=== PATIENT | male | born 1955 | race African-American/Black ===

== ENCOUNTER 2018-09-18 16:01 | Inpatient (IN) | payer OTHER ==
[~2018-09-18] VITALS: Ht 190.5 cm; Wt 77.7 kg
[2018-09-18 16:03] VITALS: BP 122/79
[2018-09-18] MEDS ORDERED: DEPAKOTE500 MG PO (17:38)
[2018-09-18] MEDS ORDERED: MELATONIN1 MG PO (17:40)
[2018-09-18] MEDS ORDERED: ZYPREXA5 MG PO (17:41)
[2018-09-18] MEDS ORDERED: PROPRANOLOL 1010 MG PO (17:41)
[2018-09-18 18:00] VITALS: BP 132/89
--- NOTE | 2018-09-18 18:00 | NUR ---
TO OR BY GI LAB
--- NOTE | 2018-09-18 19:06 | NUR ---
RETURNED TO ROOM 1 FROM GI LAB.
[2018-09-18 19:31] LABS: ABSOLUTE NEUTROPHILS 6.8 thou/uL (1.4-8.2); BASOPHILS 0.5 % (0.0-2.0); EOSINOPHILS 0.4 % (0.0-3.0); HEMATOCRIT 41.1 % (42.0-52.0); HEMOGLOBIN 13.8 gm/dL (14.0-18.0); LYMPHOCYTES 21.4 % (24.0-44.0); MCH 31.4 pg (26.0-34.0); MCHC 33.5 g/dL (28.0-37.0); MCV 93.7 fL (80.0-100.0); MONOCYTES 8.7 % (1.0-8.0); PLATELET COUNT 312 thou/uL (150-400); RBC 4.39 mil/uL (4.50-6.00); RDW 14.5 % (10.5-14.5); WBC 9.8 thou/uL (4.0-11.0)
[2018-09-18 19:33] LABS: ANION GAP 9 mmol/L (7-16); BUN 24 mg/dL (7-18); CALCIUM 9.3 mg/dL (8.5-10.1); CHLORIDE 107 mmol/L (98-107); CO2 25 mmol/L (21-32); CREATININE 1.2 mg/dL (0.7-1.3); GLUCOSE 122 mg/dL (74-106); POTASSIUM 4.3 mmol/L (3.5-5.1); SODIUM 141 mmol/L (136-145)
[2018-09-18 19:35] LABS: INR 1.1; PROTIME 11.1 Seconds (9.3-11.4)
[2018-09-18 19:41] LABS: BE(vivo) -2.1 mmol/L (-2 to +3); HCO3 22.8 mmol/L (22.0-26.0); PCO2 39.7 mmHg (35.0-45.0); PO2 67.6 mmHg (80.0-100.0); pH 7.377 (7.360-7.450); sO2 93.2 % (92.0-98.0)
[2018-09-18 19:43] LABS: ALBUMIN 3.1 g/dL (3.4-5.0); MAGNESIUM 1.9 mg/dL (1.8-2.4); SGOT 22 U/L (15-37); SGPT 15 U/L (30-65); TOTAL BILIRUBIN 0.3 mg/dL (<0.1-1.0); TOTAL PROTEIN 7.8 g/dL (6.4-8.2); TROPONIN-I <0.06 ng/mL (<0.06)
[2018-09-18 22:37] VITALS: BP 117/72
--- NOTE | 2018-09-18 22:37 | NUR ---
HAND OFF REPORT SENT TO
[2018-09-18 22:48] VITALS: BP 98/67
[2018-09-18 23:32] VITALS: BP 129/81
[2018-09-19 04:02] VITALS: BP 100/51
--- NOTE | 2018-09-19 06:01 | NUR ---
patient aox2 not able to express himself d/t hx. tbi. patient is continent this shift. patient was able to take meds with applesause this shift. patient had temp of 100.3, temp is 98.0 at this time. patient calm and cooperative with meds and care. patient able to follow comands. patient needs x1 assistance with adl, transfer, toileting and bed mobility. fall precaution in place. scd on.patient in bed asleep at this time breathing regular and unlaboured.
[2018-09-19 07:24] VITALS: BP 95/57
[2018-09-19 11:07] VITALS: BP 106/73
[2018-09-19 15:25] VITALS: BP 121/72
[2018-09-19 19:27] VITALS: BP 129/85
[2018-09-20 03:54] LABS: CALCIUM 8.6 mg/dL (8.5-10.1); CREATININE 1.1 mg/dL (0.7-1.3); MAGNESIUM 1.6 mg/dL (1.8-2.4); POTASSIUM 3.8 mmol/L (3.5-5.1)
[2018-09-20 04:07] LABS: HEMATOCRIT 33.1 % (42.0-52.0); MCH 31.7 pg (26.0-34.0); MCHC 33.9 g/dL (28.0-37.0); MCV 93.6 fL (80.0-100.0); RBC 3.53 mil/uL (4.50-6.00); RDW 14.3 % (10.5-14.5); WBC 22.3 thou/uL (4.0-11.0)
[2018-09-20 04:24] LABS: HEMOGLOBIN 11.2 gm/dL (14.0-18.0)
[2018-09-20 05:28] VITALS: BP 134/88
[2018-09-20 07:57] LABS: BE(vivo) -1.1 mmol/L (-2 to +3); HCO3 23.1 mmol/L (22.0-26.0); PCO2 36.7 mmHg (35.0-45.0); pH 7.416 (7.360-7.450); sO2 94.8 % (92.0-98.0)
--- NOTE | 2018-09-20 08:03 | NUR ---
ASSUMED PT CARE AT 1900 WITH NO SIGN OF DISTRESS NOTED. FAMILY AT BEDSIDE. PT IS ALERT BUT CONFUSED. ASSESSMENT CHARTED AND COMPLETED. SCHEDULED MEDS ADMINISTERED TO PT AND PT TOLERATED PO INTAKE. DENIES ANY NEEDS NO SIGN OF DISTRESS NOTED IN PT. PT IS STABLE THROUGHOUT THE NIGHT ON OXYGEN. DENIES ANY NEEDS AT THIS TIME. CONTINUE TO MONITOR PATIENT.
[2018-09-20 08:18] VITALS: BP 123/83
--- NOTE | 2018-09-20 08:40 | EKG ---
[address] [address] ELECTROCARDIOGRAM REPORT Name: ANICETO ALFARO Room #: 212-P ADM IN M.R.#: [id number] ������������������ Admission: 09/18/18 ������������������ Attend Phys: Gary Mar MD Discharge: ������������������ Date of : 53 Report #: [id number] ����������������������������������������������������������������� [id number] THIS REPORT FOR: //name// [facility] ED Test Date: 2018-09-18 Test Time: 19:27:05 Pat Name: ANICETO ALFARO Department: Room: [facility] Gender: M Vp [employer]: [place] : 1955 Requested By: Hang Valadez Order Number: [id number] MD: Rajesh Reynolds Measurements Intervals [place] Rate: 109 P: 74 [place]: 173 QRS: -67 QRSD: 81 T: 74 QT: 323 QTc: 436 Interpretive Statements Sinus tachycardia Left anterior fascicular block Low voltage, extremity leads Anteroseptal infarct, old No previous ECG available for comparison Electronically Signed On 09-20-2018 8:40:30 CDT by Rajesh Reynolds [email or web address] ��������������������������������������������� <ELECTRONICALLY SIGNED> ���������������������������������������� By: Rajesh Reynolds MD ��������������������������������������������� 09/20/18 0840 26 26 Rajesh Reynolds MD /GIOVANNA
[2018-09-20 12:23] VITALS: BP 106/72
[2018-09-20 14:09] VITALS: BP 147/98
--- NOTE | 2018-09-20 14:53 | NUR ---
met with patient who admits from [facility] with difficulty swallowing. Left message at [facility] as there is no emergecy contact on face sheet from facility. Plan return to [facility] once stable. [place] airport planner to update facility.
--- NOTE | 2018-09-20 15:10 | NUR ---
PATIENT CARE ASSUMED AT 0700, ASSESSMENT CHARTED, VSS, NO COMPLAINTS OF PAIN, DC'S NS AT 125, 3L 02 BY MT, PATIENT TRANSFERRED TO Replaced by [facility].
--- NOTE | 2018-09-20 15:58 | NUR ---
FAXED CLINICAL UPDATE TO [facility] LEFT MSG WITH KELLIE IN ADM THAT UPDATE FAXED. DCP TO FOLLOW.
--- NOTE | 2018-09-20 16:08 | HC ---
[facility] [place] [address] [place] [address] CONSULTATION Name: ANICETO ALFARO Room #: 423-1 ADM IN M.R.#: [id number] Admission: 09/18/18 ������������������ Attend Phys: Gary Mar MD Discharge: ������������������ Date of : 53 Report #: [id number] THIS REPORT FOR: //name// CC: Brea Madrid DO DATE OF SERVICE: 09/18/2018 HISTORY OF PRESENT ILLNESS: The patient is a 63-year-old male with likely food impaction, was eating a hot dog earlier today. Since then, he has not been able to swallow his own saliva. He has a history of traumatic brain injury and he can communicate, but is somewhat difficult to understand. Apparently, this has happened in the past. No old records are available in the computer. He has been having a cough. He does report some discomfort in his upper chest at this time. He has been unable to swallow his saliva or secretions in the Emergency Room. The patient had an x-ray of the neck and soft tissues, mild interstitial infiltrates may be present in the perihilar lungs. No chest radiograph is available. He was satting in the upper 80s on room air in the Emergency Room, in the 90s with oxygen, but was not wanting to wear his nasal canula oxygen. No family members are present at this time. PAST MEDICAL HISTORY: Traumatic brain injury. MEDICATIONS ON ADMISSION: From his rehab facility, Depakote, melatonin, Zyprexa, propranolol. ALLERGIES: No known drug allergies. REVIEW OF SYSTEMS: Very limited, but as per HPI. SOCIAL HISTORY: Unknown history of tobacco or alcohol use. FAMILY HISTORY: Unknown. PHYSICAL EXAMINATION: VITAL SIGNS: Temperature is 97.9, pulse 101, respiratory rate 26, O2 sat 86% on room air, blood pressure 122/79. GENERAL: He is in no acute distress, but he is spitting up and coughing up saliva. HEENT: Sclerae are nonicteric. Oropharynx is clear. NECK: Supple. CARDIOVASCULAR: Regular rhythm, but tachycardic. CHEST: No wheezes bilaterally. ABDOMEN: Soft. He is nontender, nondistended, normoactive bowel sounds. EXTREMITIES: No cyanosis, clubbing or edema. [address] [address] CONSULTATION Name: ANICETO ALFARO Room #: [facility] ADM IN M.R.#: [id number] Admission: 09/18/18 ������������������ Attend Phys: Gary Mar MD Discharge: ������������������ Date of : 53 Report #: [id number] LABORATORY DATA: No labs at this time. ASSESSMENT AND PLAN: Food impaction. I would recommend proceeding with an upper endoscopy today. Plan is for anesthesia with likely intubation to protect his airway. I will make further recommendations after endoscopy. Thank you for allowing me to participate in his care. ��������������������������������������������� <ELECTRONICALLY SIGNED> ���������������������������������������� By: Perfecto Contreras MD ��������������������������������������������� 09/20/18 1608 1838 [id number] Perfecto Contreras MD /yun
--- NOTE | 2018-09-20 16:08 | P ---
[facility] [address] [place] [address] PROCEDURE REPORT Name: ANICETO ALFARO Room #: 423-1 ADM IN M.R.#: [id number] Admission: 09/18/18 ������������������ Attend Phys: Gary Mar MD Discharge: ������������������ Date of : 53 Report #: [id number] THIS REPORT FOR: //name// CC: Brea Madrid DO DATE OF SERVICE: 09/18/2018 PROCEDURE PERFORMED: Upper endoscopy with food impaction removal. HISTORY OF PRESENT ILLNESS: The patient is a 63-year-old male with likely food impaction, was eating a hot dog earlier today. History is limited as he does have a history of traumatic brain injury, but apparently he was eating a hot dog and since that time he has not been able to swallow his own secretions and has been having coughing. His O2 sats on room air are in the upper 80s, with oxygen he is in the low 90s. Plan is for EGD. DESCRIPTION OF PROCEDURE: The risks and benefits of the procedure were explained to the patient, those risks including but not limited to bleeding, perforation and the risk of sedation. He understood these risks and gave informed consent. The patient was given propofol and intubated per Anesthesia. Next, using a standard Olympus upper endoscope, the scope was placed in the patient's mouth and advanced into the oropharynx area. Secretions were suctioned away. In the very proximal esophagus near the upper esophageal sphincter a large food impaction was noted. Initially I tried to remove this with a Cheng Net, but it was not successful, I was able to remove some pieces of the food. At this point, I was able to gently push the food impaction down into the stomach without difficulty. There was old food within the stomach. The visualized portion of the gastric mucosa was normal. The pylorus was normal and patent. The duodenal bulb, first and second portion were normal. The scope was then brought back up into the patient's esophagus. GE junction was normal. Mid esophagus was normal. The very proximal esophagus, there was a mild narrowing there, no obvious ring. I did not attempt to dilate at this time because he did have some inflammation from the recent food impaction, but again no obvious significant stricture in this area. At this point, the scope was then withdrawn and the procedure terminated. The patient tolerated the procedure well. IMPRESSION: 1. Food impaction proximal esophagus as described above, status post removal today. 2. Mild narrowing of the upper esophagus with inflammation likely due to recent impaction. 3. Otherwise normal upper endoscopy. RECOMMENDATIONS: Observe the patient post-procedure. If his O2 sats are stable [address] [address] PROCEDURE REPORT Name: DOMINICANICETO John Room #: 423-1 [facility] IN M.R.#: [id number] Admission: 09/18/18 ������������������ Attend Phys: Gary Mar MD Discharge: ������������������ Date of : 53 Report #: [id number] on room air, can consider discharge to home today and would advise the patient chewing his food thoroughly, may consider repeat upper endoscopy with dilation in the near future. Thank you for allowing me to participate in his care. ��������������������������������������������� <ELECTRONICALLY SIGNED> ���������������������������������������� By: Perfecto Contreras MD ��������������������������������������������� 09/20/18 1608 1841 [id number] Perfecto Contreras MD /nt
[2018-09-20 19:30] VITALS: BP 153/120
[2018-09-20 20:50] VITALS: BP 150/86
--- NOTE | 2018-09-21 03:17 | NUR ---
PATIENT ALERT AND ORIENTED X4. RESP COARSE AND DIMINISHED. HAS BREATHING TX'S. O2 AT 3L/NC. UP WITH ASSIST. DENIES PAIN. SLEPT MOST OF NIGHT.
[2018-09-21 03:44] VITALS: BP 147/91
[2018-09-21 05:30] LABS: HEMATOCRIT 34.9 % (42.0-52.0); HEMOGLOBIN 11.7 gm/dL (14.0-18.0); MCH 31.3 pg (26.0-34.0); MCHC 33.6 g/dL (28.0-37.0); RBC 3.75 mil/uL (4.50-6.00); RDW 14.6 % (10.5-14.5); WBC 17.2 thou/uL (4.0-11.0)
[2018-09-21 05:49] LABS: CALCIUM 9.2 mg/dL (8.5-10.1); CREATININE 1.1 mg/dL (0.7-1.3); POTASSIUM 3.8 mmol/L (3.5-5.1)
[2018-09-21 08:00] VITALS: BP 130/50
[2018-09-21 09:13] VITALS: BP 138/91
[2018-09-21 14:11] VITALS: BP 119/63
--- NOTE | 2018-09-21 14:51 | NUR ---
ASSUMED CARE AT 0700, SHIFT ASSESSMENT DONE, MEDS GIVEN, VSS. WENT FOR A VIDEO SWALLOW EVALUATION, NO CHANGES IN DIET CONSISTENCY AND NO SWALLOWING ISSUES. RECEIVING IV ANTIBITICS. DENIES ANY NAUSEA, VOMITING, PAIN. WILL CONTINUE TO ASSESS AND ASSIST WITH ADLs NEEDED.
[2018-09-21 17:30] LABS: URINE BILIRUBIN NEGATIVE (Negative); URINE BLOOD NEGATIVE (Negative); URINE CLARITY CLEAR; URINE COLOR YELLOW; URINE GLUCOSE-RANDOM* NEGATIVE (Negative); URINE KETONES NEGATIVE (Negative); URINE LEUKOCYTES-REFLEX NEGATIVE (Negative); URINE NITRITE-REFLEX NEGATIVE (Negative); URINE PROTEIN (DIPSTICK) NEGATIVE (Negative)
--- NOTE | 2018-09-22 01:30 | NUR ---
TURNED AND REPOSITIONED, BED ALARM ON, SCDS TO BLE, ON 3 L PER NC, SPEECH SOFT BUT UNDERSTANDABLE, DRY COUGH, CONTINUE WITH IV ANTIBIOTICS FOR ASPIRATION PNEUMONIA, VOIDING SMALL AMOUNT AT A TIME IN THE URINAL, DENIES PAIN, CALL LIGHT WITHIN REACHED, HOURLY ROUNDING, MONITORED.
[2018-09-22 03:58] VITALS: BP 136/97
[2018-09-22 05:55] LABS: HEMATOCRIT 36.1 % (42.0-52.0); HEMOGLOBIN 12.2 gm/dL (14.0-18.0); MCH 31.9 pg (26.0-34.0); MCHC 33.8 g/dL (28.0-37.0); MCV 94.4 fL (80.0-100.0); PLATELET COUNT 271 thou/uL (150-400); RBC 3.83 mil/uL (4.50-6.00); RDW 14.9 % (10.5-14.5); WBC 15.3 thou/uL (4.0-11.0)
[2018-09-22 06:07] LABS: CALCIUM 9.3 mg/dL (8.5-10.1); CREATININE 1.3 mg/dL (0.7-1.3); MAGNESIUM 1.9 mg/dL (1.8-2.4); POTASSIUM 4.8 mmol/L (3.5-5.1)
[2018-09-22 06:44] LABS: ABSOLUTE NEUTROPHILS 9.6 thou/uL (1.4-8.2)
[2018-09-22 06:45] LABS: ANISOCYTOSIS 2+; PLATELET ESTIMATE NORMAL; POLYCHROMASIA 1+
[2018-09-22 07:36] VITALS: BP 128/85
--- NOTE | 2018-09-22 11:17 | HC ---
[facility] [place] [address] [place] [address] CONSULTATION Name: ANICETO ALFARO Room #: [facility] ADM IN M.R.#: [id number] Admission: 09/18/18 ������������������ Attend Phys: Gary Mar MD Discharge: ������������������ Date of : 53 Report #: [id number] THIS REPORT FOR: //name// CC: Héctor Mar DATE OF SERVICE: 09/21/2018 INFECTIOUS DISEASE CONSULTATION ATTENDING PHYSICIAN: Dr. Mayberry. REQUESTING PHYSICIAN : Dr. Mar. REASON FOR CONSULTATION: Persistent leukocytosis. HISTORY OF PRESENT ILLNESS: The patient is a 63-year-old man, with some cognitive impairment, admitted through the Emergency Room with history of food impaction requiring EGD removal. The patient had fever and significant hypoxemia on admission. Fever resolved with vancomycin and Zosyn and vancomycin discontinued. He remains on Zosyn. Oxygen requirements has gone down to 3 liters per minute and the patient's nurse suspects this is his baseline. Because of persistent leukocytosis, ID's opinion is requested. The patient currently voices no major complaints. PAST MEDICAL HISTORY: Cigarette smoking, possible underlying COPD. Protein calorie malnutrition. History of seizure disorder. Head injury resulting in above problems. Continued cigarette smoking. Possible recent aspiration pneumonia. Anemia of chronic disease. SOCIAL HISTORY: Resides in local [facility]. DRUG ALLERGIES: None listed. MEDICATIONS: The patient is currently on Zosyn 3.37 g IV every 8 hours, magnesium oxide 400 mg p.o. daily, divalproex 500 mg p.o. daily, Atrovent and albuterol inhalation treatments every 6 hours, propranolol 10 mg t.i.d., olanzapine 5 mg p.o. b.i.d., melatonin 5 mg at bedtime daily, fentanyl 50 mcg IV q.4h. p.r.n., acetaminophen 650 p.o. q.i.d. p.r.n., ondansetron 4 mg IV p.r.n., vancomycin discontinued yesterday. PHYSICAL EXAMINATION: GENERAL: Chronically ill-appearing man with some speech impediment presenting with the following vital signs. VITAL SIGNS: Temperature maximum 99.1, down to 97.6; pulse 79, respirations 18, BP 119/63. The patient was febrile with temperature of 101.3 on the date of [address] [address] CONSULTATION Name: ANICETO ALFARO Room #: [address] [place] [address] [place] [facility].#: [id number] Admission: 09/18/18 ������������������ Attend Phys: Gary Mar MD Discharge: ������������������ Date of : 53 Report #: [id number] admission. His oxygen requirements initially nonrebreathing max 15 liters per minute, subsequently 6 liters per minute and as of lately 3 liters per nasal cannula and his oxygen saturation is 96%. HEENMT: Head normocephalic, atraumatic. Pupils equal, reactive, arcus cornealis missing teeth, periodontal disease. NECK: Supple. LUNGS: Crackles in left base posteriorly. HEART: S1, S2. No gallop or murmur. ABDOMEN: Soft, no masses or megaly. GENITALIA: Deferred. RECTAL: Deferred. EXTREMITIES: No clubbing or cyanosis. Flexor contracture in fingers left hand. NEUROLOGIC: Speech impediment, cognitive impairment and flexor contractures in left hand noted. LABORATORY DATA: Sodium 143, potassium 3.8, BUN 19, creatinine 1.1, glucose 84. Leukocytosis of 22,300 yesterday, down to 17,200 today; hemoglobin 11.7 g/dL and platelets 203,000. The MRSA by PCR is negative. Urinalysis not done. ABGs on 09/20/2018 revealed pH 7.41, pCO2 of 36, pO2 of 72, bicarbonate 23, lactate normal. These set of gases is on 2.5 liters oxygen by mask. MICROBIOLOGY DATA: Blood cultures negative at the time of this dictation from the date of admission. RADIOLOGY EVALUATION: Chest x-ray revealed possibly bibasilar pulmonary infiltrates and on physical exam, he has crackles on the left base posteriorly. His swallowing function revealed no aspiration or laryngeal penetration today. ASSESSMENT: 1. History of food impaction, status post EGD removal. 2. Respiratory failure, possible aspiration pneumonia, improving. 3. Possible underlying chronic obstructive pulmonary disease. 4. Leukocytosis, slowly improving. Continue to monitor. 5. Malnutrition. 6. History of head trauma and seizure disorder. 7. History of protein calorie malnutrition. SUGGESTIONS AND RECOMMENDATIONS: Continue treatment for aspiration pneumonia, the patient appears to be improving. I agree with monitoring CBC with differential tomorrow. I am adding ESR and CRP to his basic laboratory testing tomorrow. Possibly can consider switching to Augmentin by mouth 500 mg p.o. b.i.d. for 5-7 more days for possible aspiration pneumonia. [facility] [address] [place] [address] CONSULTATION Name: ANICETO ALFARO Room #: 423-1 ADM IN M.R.#: [id number] Admission: 09/18/18 ������������������ Attend Phys: Gary Mar MD Discharge: ������������������ Date of : 53 Report #: [id number] Mar, thank you for requesting my suggestions in the care of your patient. ��������������������������������������������� <ELECTRONICALLY SIGNED> ���������������������������������������� By: Barrie Reynolds MD ��������������������������������������������� 09/22/18 1117 1518 0606 Barrie Reynolds MD /nt
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
[2018-09-22 19:53] VITALS: BP 142/93
[2018-09-23 05:08] VITALS: BP 105/65
--- NOTE | 2018-09-23 06:12 | NUR ---
Assessed Pt at start of shift. weekness noted and in bed. repositioned pt slightly confused. fall prec in place an bed in lower posiion. incontinent and wets jane. changed pt and poc done.
[2018-09-23 09:14] VITALS: BP 131/81
[2018-09-23] MEDS ORDERED: MAGNESIUM400 MG PO (12:43)
[2018-09-23] MEDS ORDERED: IPRAT-ALBUT 0.5-3 ML INH (12:43)
[2018-09-23] MEDS ORDERED: ACETAMINOPHEN325 M1 PO (12:43)
[2018-09-23] MEDS ORDERED: AUGMENTIN 500-1 EACH PO (12:43)
--- NOTE | 2018-09-23 14:03 | NUR ---
PT ASSESSED AT START OF SHIFT. PT W/ NONPRODUCTIVE COUGH. ON ROOM AIR. EATING AND DRINKING WELL. VOIDING WELL PER URINAL. NO C/O DISCOMFORT. TURNED Q2HRS. PHYSICAL THERAPY WORKING W/ PT. PLAN FOR DISCHARGE BACK TO HIS FACILITY THIS AFTERNOON PER NEW ORDERS.
--- NOTE | 2018-09-23 16:46 | NUR ---
Received order from physician to arrange d/c back to [facility]. Spoke with managed care coordinator and faxed orders. Chart copied. W/c van will transport. No other needs identified.
== END 2018-09-23 19:16 | DRG 177 ==
LOC: ER 16:01 → EROBS 20:12 → 2N 20:12 → 4E 20:12 → 2N 09-19 00:08 → 4E 09-20 13:26
PROVIDERS: Emergency Medicine; Hospitalist; Nurse Practitioner Family; ADMIT Internal Medicine
PROC: 0DC18ZZ Extirpation of Matter from Upper Esophagus, Via Natural or Artificial Opening Endoscopic (ICD-10-PCS; principal; 2018-09-18)
DX: J69.0 Pneumonitis due to inhalation of food and vomit (principal); J96.01 Acute respiratory failure with hypoxia; E43 Unspecified severe protein-calorie malnutrition; J44.0 Chronic obstructive pulmonary disease with (acute) lower respiratory infection; T18.128A Food in esophagus causing other injury, initial encounter; X58.XXXA Exposure to other specified factors, initial encounter; F17.210 Nicotine dependence, cigarettes, uncomplicated; D72.829 Elevated white blood cell count, unspecified; I10 Essential (primary) hypertension; R13.10 Dysphagia, unspecified; D64.9 Anemia, unspecified; F32.9 Major depressive disorder, single episode, unspecified; E83.42 Hypomagnesemia; G40.409 Other generalized epilepsy and epileptic syndromes, not intractable, without status epilepticus; Z87.820 Personal history of traumatic brain injury; Z79.899 Other long term (current) drug therapy; Y93.89 Activity, other specified; Y92.89 Other specified places as the place of occurrence of the external cause; Y99.8 Other external cause status; Z68.21 Body mass index [BMI] 21.0-21.9, adult
CPT/HCPCS: 10081; 10783